=== PATIENT | female | born 1955 | race Caucasian/White ===

== ENCOUNTER → 2018-07-16 | Outpatient (CLI) | payer MEDICARE, BC ==
--- NOTE | 2018-07-16 15:41 | FL ---
EXAMINATION TYPE: FL barium swallow DATE OF EXAM: 07/16/2018 COMPARISON: None HISTORY: Discomfort in the mid chest TECHNIQUE: A single contrast limited esophagram is performed. FINDINGS: Fluoroscopic imaging is performed with real-time observation. Esophagus dilates to normal c aliber has normal contour to the gastroesophageal junction. LAP-BAND is present at the gastroesophage al junction in a normal orientation. Contrast passes through the lap band without hesitancy. No prola pse is evident. Note is made of a few tertiary contractions within the distal esophagus during the ex am. IMPRESSIONS: 1. Normal limited esophagram post lap band. No stenosis or prolapse is evident. 2. Presbyesophagus
[2018-07-16 16:12] VITALS: BP 132/84; PULSE 79; TEMP 98; BMI 31.8
--- NOTE | 2018-07-17 10:42 | P.HPBAR ---
Bariatric H&P - History & Physicial H&P Date: 07/16/18 History & Physicial: Visit/CC: band adjustment/dysphagia Patient initial contact: Initial weight: 95.254 kg Initial weight in pounds: 210.00 Height: 5 ft 1 in Initial BMI: 39.6 Last weight: Current weight: 76.34 kg Current weight in pounds: 168.30 Current BMI: 31.8 [place] body weight (based on NIH guidelines): 47.627 kg Excess body weight loss: 39.7% The patient is a 63 year-old F who presents for Bariatric Assessment. The patient presents today for LAP-BAND adjustment. She's had chronic issues with dysphagia. She's not been seen in several years. Past Medical History History of Any Multi-Drug Resistant Organisms: None Reported Past Surgical History: Bariatric Surgery, Cholecystectomy, Orthopedic Surgery Additional Past Surgical History / Comment(s): lap band placed eary 1999's, bilateral carpal tunnel, hysterectomy with unilateral oopherectomy (pt does not remember which ovary was removed), pt states she had sx on her ureter (they performed this through her vagina) but she can not remember the name of the procedure Past Anesthesia/Blood Transfusion Reactions: No Reported Reaction Additional Past Anesthesia/Blood Transfusion Reaction / Comm: NO blood transfusion to date Past Psychological History: Anxiety, Depression Additional Psychological History / Comment(s): Takes Effexor 225mg daily Smoking Status: Never smoker Past Alcohol Use History: Rare Past Drug Use History: Marijuana Additional Drug Use History / Comment(s): SMokes marijuana occasionally Surgical - Exam Vital Signs Temp Pulse BP 98.0 F 79 132/84 07/16/18 15:30 07/16/18 15:30 07/16/18 15:30 - General well developed, well nourished, no distress - Eyes PERRL - ENT normal pinna - Neck no masses - Respiratory normal expansion - Cardiovascular Rhythm: regular - Abdomen Abdomen: soft, non tender Bariatric Assessment & Plan Plan: The patient's lap band was adjusted. She had 5 mL remove her band. Her band was emptied. She was able to water without difficulty. Patient had an esophagram performed there is no evidence of prolapse of the band. Once her band was emptied there is no significant obstruction. She'll follow-up in 4 weeks. Bariatric Checklist Checklist: Plan: Checklist: EGD: 1. Hiatal hernia: 2. H. Pylori: HgbA1c: Vitamin D: Smoking: Never smoker Primary care physician referral: Dr. Basurto ([place], [place]) Psychiatry clearance: Cardiology clearance: Sleep study: Diet journal: VTE risk score: VTE risk level: Rehab needs at discharge:
== END ==
LOC: BARWHC3 13:33
PROVIDERS: ATTEND Surgery
DX: Z48.815 Encounter for surgical aftercare following surgery on the digestive system (principal); K22.8 Other specified diseases of esophagus; Z98.84 Bariatric surgery status
CPT/HCPCS: 74220; G0463; 99203

== ENCOUNTER → 2018-10-01 | Outpatient (CLI) | payer MEDICARE, BC ==
[2018-10-01 16:53] VITALS: BP 126/73; PULSE 80; RESP 16; TEMP 98.3; BMI 33.0
--- NOTE | 2018-10-02 09:41 | P.HPBAR ---
Bariatric H&P - History & Physicial H&P Date: 10/01/18 History & Physicial: Visit/CC: Band Adj Patient initial contact: Initial weight: 95.254 kg Initial weight in pounds: 210.00 Height: 5 ft 1 in Initial BMI: 39.6 Last weight: Current weight: 79.379 kg Current weight in pounds: 175.00 Current BMI: 33.0 [place] body weight (based on NIH guidelines): 47.627 kg Excess body weight loss: 33.3% The patient is a 63 year-old F who presents for Bariatric Assessment. Patient is requesting an adjustment of her LAP-BAND. She currently feels hungry. She is gaining weight over the last several weeks. Past Medical History History of Any Multi-Drug Resistant Organisms: None Reported Past Surgical History: Bariatric Surgery, Cholecystectomy, Orthopedic Surgery Additional Past Surgical History / Comment(s): lap band placed eary , bilateral carpal tunnel, hysterectomy with unilateral oopherectomy (pt does not remember which ovary was removed), pt states she had sx on her ureter (they perf ormed this through her vagina) but she can not remember the name of the procedure Past Anesthesia/Blood Transfusion Reactions: No Reported Reaction Additional Past Anesthesia/Blood Transfusion Reaction / Comm: NO blood transfusion to date Past Psychological History: Anxiety, Depression Additional Psychological History / Comment(s): Takes Effexor 225mg daily Smoking Status: Never smoker Past Alcohol Use History: Rare Past Drug Use History: Marijuana Additional Drug Use History / Comment(s): SMokes marijuana occasionally Surgical - Exam Vital Signs Temp Pulse Resp BP 98.3 F 80 16 126/73 10/01/18 16:50 10/01/18 16:50 10/01/18 16:50 10/01/18 16:50 - General well developed, well nourished, no distress - Eyes PERRL - Abdomen Abdomen: soft, non tender Bariatric Assessment & Plan Plan: The patient's lap band was adjusted. She had 4 mL added. She'll follow-up in one month.. Bariatric Checklist Checklist: Plan: Checklist: EGD: 1. Hiatal hernia: 2. H. Pylori: HgbA1c: Vitamin D: Smoking: Never smoker Primary care physician referral: Dr. Basurto ([place], [place]) Psychiatry clearance: Cardiology clearance: Sleep study: Diet journal: VTE risk score: VTE risk level: Rehab needs at discharge:
== END ==
LOC: BARWHC3 15:10
PROVIDERS: ATTEND Surgery
DX: Z48.815 Encounter for surgical aftercare following surgery on the digestive system (principal); Z98.84 Bariatric surgery status; Z90.49 Acquired absence of other specified parts of digestive tract
CPT/HCPCS: 99212

== ENCOUNTER → 2019-11-04 | Outpatient (CLI) | payer MEDICARE, BC ==
[2019-11-04 13:24] VITALS: BP 139/82; PULSE 67; RESP 16; TEMP 97.9; BMI 34.5
--- NOTE | 2019-11-04 13:51 | P.HPBAR ---
Bariatric H&P - History & Physicial H&P Date: 11/04/19 History & Physicial: Visit/CC: Requesting band fill Patient initial contact: Initial weight: 95.254 kg Initial weight in pounds: 210.00 Height: 5 ft 1 in Initial BMI: 39.6 Last weight: Current weight: 82.917 kg Current weight in pounds: 182.80 Current BMI: 34.5 [place] body weight (based on NIH guidelines): 47.627 kg Excess body weight loss: 25.9% The patient is a 64 year-old F who presents for Bariatric Assessment. Patient presents today for LAP-BAND adjustment. She's requesting a fill of her band. She currently feels hungry. Past Medical History History of Any Multi-Drug Resistant Organisms: None Reported Past Surgical History: Bariatric Surgery, Cholecystectomy, Orthopedic Surgery Additional Past Surgical History / Comment(s): lap band placed eary 1999's, bilateral carpal tunnel, hysterectomy with unilateral oopherectomy (pt does not remember which ovary was removed), pt states she had sx on her ureter (they performed this through her vagina) but she can not remember the name of the procedure Past Anesthesia/Blood Transfusion Reactions: No Reported Reaction Additional Past Anesthesia/Blood Transfusion Reaction / Comm: NO blood transfusion to date Smoking Status: Never smoker Surgical - Exam Vital Signs Temp Pulse Resp BP 97.9 F 67 16 139/82 11/04/19 12:50 11/04/19 12:50 11/04/19 12:50 11/04/19 12:50 - General well developed, well nourished, no distress - Eyes PERRL - ENT normal pinna - Neck no masses - Respiratory normal expansion - Cardiovascular Rhythm: regular - Abdomen Abdomen: soft, non tender Bariatric Assessment & Plan Plan: Patient's lap band was adjusted. She had 0.5 mL added to the band. She currently is 4.5 mL in the band. She'll follow-up in 4 weeks. Bariatric Checklist Checklist: Plan: Checklist: EGD: 1. Hiatal hernia: 2. H. Pylori: HgbA1c: Vitamin D: Smoking: Never smoker Primary care physician referral: Dr. Basurto ([place], [place]) Psychiatry clearance: Cardiology clearance: Sleep study: Diet journal: VTE risk score: VTE risk level: Rehab needs at discharge:
== END | disposition home or self-care (01) ==
LOC: BARWHC3 12:50
PROVIDERS: ATTEND Surgery
DX: Z46.51 Encounter for fitting and adjustment of gastric lap band (principal); Z98.84 Bariatric surgery status; Z90.49 Acquired absence of other specified parts of digestive tract
CPT/HCPCS: 99212

== ENCOUNTER → 2023-10-23 | Outpatient (CLI) | payer MEDICARE, BC ==
[2023-10-23 11:18] VITALS: BP 145/87; PULSE 73; RESP 16; TEMP 98.2; BMI 33.2
--- NOTE | 2023-12-21 12:37 | P.HPBAR ---
Bariatric H&P - History & Physicial H&P Date: 10/23/23 History & Physicial: Visit/CC: F/U Patient initial contact: Initial weight: 95.254 kg Initial weight in pounds: 210.00 Height: 5 ft 1 in Initial BMI: 39.6 Last weight: Current weight: 79.832 kg Current weight in pounds: 176.00 Current BMI: 33.2 [place] body weight (based on NIH guidelines): 47.627 kg Excess body weight loss: 32.3% The patient is a 68 year-old F who presents for Bariatric Assessment. Patient presents today for bariatric follow-up. She is requesting a fill of her band. Past Medical History History of Any Multi-Drug Resistant Organisms: None Reported Past Surgical History: Bariatric Surgery, Cholecystectomy, Orthopedic Surgery Additional Past Surgical History / Comment(s): lap band placed eary 1999's, bilateral carpal tunnel, hysterectomy with unilateral oopherectomy (pt does not remember which ovary was removed), pt states she had sx on her ureter (they performed this through her vagina) but she can not remember the name of the procedure Past Anesthesia/Blood Transfusion Reactions: No Reported Reaction Additional Past Anesthesia/Blood Transfusion Reaction / Comm: NO blood transfusion to date Past Psychological History: Anxiety, Depression Additional Psychological History / Comment(s): Takes Effexor 225mg daily Smoking Status: Unknown if ever smoked Past Alcohol Use History: Rare Past Drug Use History: Marijuana Additional Drug Use History / Comment(s): SMokes marijuana occasionally Surgical - Exam Vital Signs Temp Pulse Resp BP 98.2 F 73 16 145/87 10/23/23 10:32 10/23/23 10:32 10/23/23 10:32 10/23/23 10:32 Signs are stable. Abdomen is soft. Bariatric Assessment & Plan Plan: Patient has a malfunctioning Lap-Band port. She will need to have her Lap-Band port replaced. Bariatric Checklist Checklist: Plan: Checklist: EGD: 1. Hiatal hernia: 2. H. Pylori: HgbA1c: Vitamin D: Smoking: Never smoker Primary care physician referral: Dr. Basurto ([place], [place]) Psychiatry clearance: Cardiology clearance: Sleep study: Diet journal: VTE risk score: VTE risk level: Rehab needs at discharge:
== END ==
LOC: BARWHC3 09:52
PROVIDERS: ATTEND Surgery
DX: K95.09 Other complications of gastric band procedure (principal); Z98.84 Bariatric surgery status
CPT/HCPCS: 99202

== ENCOUNTER 2023-12-18 09:02 | Day surgery (SDC) | payer MEDICARE, BC ==
[~2023-12-18 09:02] MED LIST: HYDROmorphone 0.5 MG/0.5 ML SYRINGE IVP PRN; LIDOCAINE 1% (10MG/ML) FOR IV START INTRADERMA PRN; droPERidol 5 MG/2 ML VIAL IVP ONE
[2023-12-18 09:27] VITALS: RESP 16
[2023-12-18] MEDS: IV FLUID CONTINUATION 1,000 ML IV ONE ×2 (09:39→11:06)
[2023-12-18] MEDS: LACTATED RINGERS 1,000 ML IV SCH (09:39)
[2023-12-18] MEDS: ACETAMINOPHEN TAB 500 MG TAB PO STA (09:45)
[2023-12-18] MEDS: DEXAMETHASONE SOD PHOSPHATE 4 MG/ML 1 ML VIAL IV ONE (09:46)
[2023-12-18] MEDS: HEPARIN SODIUM,PORCINE 5,000 UNIT/ML 1 ML VIAL SQ STA (09:46)
[2023-12-18] MEDS: ONDANSETRON 4 MG/2 ML VIAL IVP ONE (09:46)
--- NOTE | 2023-12-18 10:41 | P.GSHP ---
History of Present Illness H&P Date: 12/18/23 Chief Complaint: Lap-Band port malfunction Is a 68-year-old female who presents today for Lap-Band port placement. Patient is leaking Lap-Band port. She presents today for laparoscopic removal and replacement. Past Medical History Past Medical History: Hyperlipidemia Additional Past Medical History / Comment(s): no meds for cholesterol, lap band port not working. History of Any Multi-Drug Resistant Organisms: None Reported Past Surgical History: Bariatric Surgery, Cholecystectomy, Hysterectomy, Orthopedic Surgery Additional Past Surgical History / Comment(s): lap band placed eary 2000's, bilateral carpal tunnel, hysterectomy with unilateral oopherectomy (pt does not remember which ovary was removed), pt states she had sx on her ureter (they performed this through her vagina) but she can not remember the name of the procedure Past Anesthesia/Blood Transfusion Reactions: No Reported Reaction Additional Past Anesthesia/Blood Transfusion Reaction / Comment(s): NO blood transfusion to date Smoking Status: Never smoker - Past Family History Father Family Medical History: Diabetes Mellitus Medications and Allergies Home Medications Medication Instructions Recorded Confirmed Type Venlafaxine HCl [Effexor XR] 225 mg PO DAILY 07/16/18 12/18/23 History ARIPiprazole [Abilify] 5 mg PO DAILY 11/04/19 12/18/23 History Allergies Allergy/AdvReac Type Severity Reaction Status Date / Time No Known Allergies Allergy Verified 12/18/23 09:23 Surgical - Exam Vital Signs Temp Pulse Resp BP Pulse Ox 98.1 F 86 16 143/75 97 12/18/23 09:20 12/18/23 09:20 12/18/23 09:20 12/18/23 09:20 12/18/23 09:20 - General well developed, well nourished, moderate distress - Eyes PERRL - ENT normal pinna, normal nares - Neck no masses - Respiratory normal expansion - Cardiovascular Rhythm: regular - Abdomen Abdomen: soft, non tender Assessment and Plan Assessment: Lap-Band port malfunction. Will perform laparoscopic removal and replacement.
[2023-12-18] MEDS ORDERED: PROPOFOL 10 MG/ML 20 ML VIAL IV ONE (11:16)
[2023-12-18] MEDS ORDERED: NEOSTIGMINE 1 MG/ML 10 ML VIAL ONE (11:16)
[2023-12-18] MEDS ORDERED: GLYCOPYRROLATE 0.2 MG/ML 2 ML VIAL ONE (11:16)
[2023-12-18] MEDS ORDERED: fentaNYL (PF) 50 MCG/ML 2 ML AMP ONE (11:16)
[2023-12-18] MEDS ORDERED: MIDAZOLAM 2 MG/2 ML VIAL ONE (11:16)
[2023-12-18] MEDS ORDERED: SUCCINYLCHOLINE CHLORIDE 200 MG/10 ML VIAL IV ONE (11:16)
[2023-12-18] MEDS ORDERED: KETOROLAC 15 MG/ML 1 ML VIAL ONE (11:16)
[2023-12-18] MEDS ORDERED: LIDOCAINE 1% INJ 10MG/ML (20 ML MDV) ONE (11:16)
[2023-12-18] MEDS ORDERED: ROCURONIUM 10 MG/ML (5 ML VIAL) IV ONE (11:16)
[2023-12-18] MEDS: LIDOCAINE 1%-EPI 1:100,000 20 ML VIAL SQ ONE (11:38)
--- NOTE | 2023-12-18 12:20 | P.OP ---
Date of Procedure: 12/18/23 Preoperative Diagnosis: Lap-Band port malfunction Postoperative Diagnosis: Lap-Band port malfunction Procedure(s) Performed: Laparoscopic removal and placement Lap-Band port Anesthesia: JHOANA Surgeon: Joao Strauss Estimated Blood Loss (ml): 10 Pathology: none sent Condition: stable Disposition: PACU Description of Procedure: The patient was placed on the operative table in supine position. She received general endotracheal anesthesia. Her abdomen was prepped and draped in usual sterile fashion. The skin is anesthetized at the incision sites with 1% local Xylocaine. The skin incised at the port site. Using blunt sharp dissection with cautery the Lap-Band port was dissected free. Tube was then cut and the port was removed. Next using a 5 mm optical trocar under vision the peritoneal cavity entered at the port site. The abs insufflated. After adequate deflation the laparoscope was placed back into the peritoneal cavity. And then a 10 mm trocar was placed in the right upper quadrant. The Tube was then grasped and brought out through the trocar site. The trocars were withdrawn. The new Lap- Band port was then cut to the PEG tube. Lap-Band port was secured to the fascia using 0 Nurolon suture. The skin was closed interrupted 3-0 Monocryl suture. Dermabond was applied. The Lap-Band port had been filled with 2 cc prior to skin closure. Patient tolerated procedure well. She was sent to recovery room in stable condition.
[2023-12-18 12:25] VITALS: TEMP 98.3
[2023-12-18 14:00] VITALS: BP 115/74; PULSE 75
== END 2023-12-18 14:09 | disposition home or self-care (01) ==
LOC: OR 09:02
PROVIDERS: ATTEND Surgery
DX: K95.09 Other complications of gastric band procedure (principal); E78.5 Hyperlipidemia, unspecified; E07.9 Disorder of thyroid, unspecified; F41.9 Anxiety disorder, unspecified; F32.A Depression, unspecified; Z90.49 Acquired absence of other specified parts of digestive tract; Z90.710 Acquired absence of both cervix and uterus; Z90.721 Acquired absence of ovaries, unilateral; Z79.899 Other long term (current) drug therapy; Y83.8 Other surgical procedures as the cause of abnormal reaction of the patient, or of later complication, without mention of misadventure at the time of the procedure
CPT/HCPCS: 43773; C1751; J2250; J0330; J1644; J1100; J2710; J0690; J2405; J2001; J3010; J1885; J2704; J1596

== ENCOUNTER → 2024-03-11 | Outpatient (CLI) | payer MEDICARE, BC ==
[2024-03-11 10:17] VITALS: BP 128/81; PULSE 67; RESP 16; BMI 34.0
--- NOTE | 2024-03-11 11:55 | P.HPBAR ---
Bariatric H&P - History & Physicial H&P Date: 03/11/24 History & Physicial: Visit/CC: f/u lap band Patient initial contact: Initial weight: 95.254 kg Initial weight in pounds: 210.00 Height: 5 ft 1 in Initial BMI: 39.6 Last weight: Current weight: 81.647 kg Current weight in pounds: 180.00 Current BMI: 34.0 [place] body weight (based on NIH guidelines): 47.627 kg Excess body weight loss: 28.5% The patient is a 68 year-old F who presents for Bariatric Assessment. Patient is requesting a fill. She currently hungry. Past Medical History Past Medical History: Hyperlipidemia Additional Past Medical History / Comment(s): no meds for cholesterol History of Any Multi-Drug Resistant Organisms: None Reported Past Surgical History: Bariatric Surgery, Cholecystectomy, Hysterectomy, Orthopedic Surgery Additional Past Surgical History / Comment(s): lap band placed eary , lapband replacement done 12/18/23, bilateral carpal tunnel, hysterectomy with unilateral oopherectomy (pt does not remember which ovary was removed), pt states she had sx on her ureter (they performed this through her vagina) but she can not remember the name of the procedure. Past Anesthesia/Blood Transfusion Reactions: No Reported Reaction Additional Past Anesthesia/Blood Transfusion Reaction / Comm: NO blood t ransfusion to date Smoking Status: Never smoker - Past Family History Father Family Medical History: Diabetes Mellitus Surgical - Exam Vital Signs Pulse Resp BP 67 16 128/81 03/11/24 10:13 03/11/24 10:13 03/11/24 10:13 - General well developed, no distress - Abdomen Abdomen: soft, non tender Bariatric Assessment & Plan Plan: Patient lab results. She had 1 cc added to the band. Bariatric Checklist Checklist: Plan: Checklist: EGD: 1. Hiatal hernia: 2. H. Pylori: HgbA1c: Vitamin D: Smoking: Never smoker Primary care physician referral: Dr. Gramajo Psychiatry clearance: Cardiology clearance: Sleep study: Diet journal: VTE risk score: VTE risk level: Rehab needs at discharge:
== END | disposition home or self-care (01) ==
LOC: BARWHC3 09:51
PROVIDERS: ATTEND Surgery
DX: E66.01 Morbid (severe) obesity due to excess calories (principal)
CPT/HCPCS: 43999

== ENCOUNTER → 2024-04-08 | Outpatient (CLI) | payer MEDICARE, BC ==
[2024-04-08 10:25] VITALS: BP 128/84; PULSE 61; RESP 16; TEMP 98.3; BMI 34.4
--- NOTE | 2024-04-08 14:01 | P.HPBAR ---
Bariatric H&P - History & Physicial H&P Date: 04/08/24 History & Physicial: Visit/CC: f/u lap band Patient initial contact: Initial weight: 95.254 kg Initial weight in pounds: 210.00 Height: 5 ft 1 in Initial BMI: 39.6 Last weight: Current weight: 82.554 kg Current weight in pounds: 182.00 Current BMI: 34.4 [place] body weight (based on NIH guidelines): 47.627 kg Excess body weight loss: 26.6% The patient is a 68 year-old F who presents for Bariatric Assessment. Presents today for bariatric follow-up. She is requesting a fill of her band. She currently feels hungry. Past Medical History Past Medical History: Hyperlipidemia Additional Past Medical History / Comment(s): no meds for cholesterol History of Any Multi-Drug Resistant Organisms: None Reported Past Surgical History: Bariatric Surgery, Cholecystectomy, Hysterectomy, Orthopedic Surgery Additional Past Surgical History / Comment(s): lap band placed eary , lapband replacement done 12/18/23, bilateral carpal tunnel, hysterectomy with unilateral oopherectomy (pt does not remember which ovary was removed), pt states she had sx on her ureter (they performed this through her vagina) but she can not remember the name of the procedure. Past Anesthesia/Blood Transfusion Reactions: No Reported Reaction Additional Past Anesthesia/Blood Transfusion Reaction / Comm: NO blood transfusion to date Past Psychological History: Anxiety, Depression Additional Psychological History / Comment(s): Takes Effexor 225mg daily Smoking Status: Never smoker Past Alcohol Use History: Rare Past Drug Use History: Marijuana Additional Drug Use History / Comment(s): Smokes marijuana occasionally - Past Family History Father Family Medical History: Diabetes Mellitus Surgical - Exam Vital Signs Temp Pulse Resp BP 98.3 F 61 16 128/84 04/08/24 10:13 04/08/24 10:13 04/08/24 10:13 04/08/24 10:13 - General well developed, well nourished, no distress - Eyes PERRL - ENT normal pinna - Neck no masses - Respiratory normal expansion - Cardiovascular Rhythm: regular - Abdomen Abdomen: soft, non tender Bariatric Assessment & Plan Plan: Patient Lap-Band adjusted. She had 1.5 cc Ativan. She will follow-up in 4 weeks. Bariatric Checklist Checklist: Plan: Checklist: EGD: 1. Hiatal hernia: 2. H. Pylori: HgbA1c: Vitamin D: Smoking: Never smoker Primary care physician referral: Dr. Gramajo Psychiatry clearance: Cardiology clearance: Sleep study: Diet journal: VTE risk score: VTE risk level: Rehab needs at discharge:
== END ==
LOC: BARWHC3 09:57
PROVIDERS: ATTEND Surgery
DX: Z46.51 Encounter for fitting and adjustment of gastric lap band (principal); E66.01 Morbid (severe) obesity due to excess calories; Z98.84 Bariatric surgery status; Z68.34 Body mass index [BMI] 34.0-34.9, adult
CPT/HCPCS: 43999

== ENCOUNTER → 2024-08-12 | Outpatient (CLI) | payer MEDICARE, BC ==
[2024-08-12 10:42] VITALS: BP 137/81; PULSE 67; RESP 16; TEMP 97.9; BMI 34.7
--- NOTE | 2024-10-03 16:06 | P.HPBAR ---
Bariatric H&P - History & Physicial H&P Date: 08/12/24 History & Physicial: Visit/CC: lapband f/u Patient initial contact: Initial weight: 95.254 kg Initial weight in pounds: 210.00 Height: 5 ft 1 in Initial BMI: 39.6 Last weight: Current weight: 83.461 kg Current weight in pounds: 184.00 Current BMI: 34.7 [place] body weight (based on NIH guidelines): 47.72 kg Excess body weight loss: 24.8% The patient is a 69 year-old F who presents for Bariatric Assessment. Patient is requesting refill of her Lap-Band. She currently is hungry. Past Medical History Past Medical History: Hyperlipidemia Additional Past Medical History / Comment(s): no meds for cholesterol History of Any Multi-Drug Resistant Organisms: None Reported Past Surgical History: Bariatric Surgery, Cholecystectomy, Hysterectomy, Orthopedic Surgery Additional Past Surgical History / Comment(s): lap band placed eary , lapband replacement done 12/18/23, bilateral carpal tunnel, hysterectomy with unilateral oopherectomy (pt does not remember which ovary was removed), pt states she had sx on her ureter (they performed this through her vagina) but she can not remember the name of the procedure. Past Anesthesia/Blood Transfusion Reactions: No Reported Reaction Additional Past Anesthesia/Blood Transfusion Reaction / Comm: NO blood transfusion to date Past Psychological History: Anxiety, Depression Additional Psychological History / Comment(s): Takes Effexor 225mg daily Smoking Status: Never smoker Past Alcohol Use History: Rare Past Drug Use History: Marijuana Additional Drug Use History / Comment(s): Smokes marijuana occasionally - Past Family History Father Family Medical History: Diabetes Mellitus Surgical - Exam Vital Signs Temp Pulse Resp BP 97.9 F 67 16 137/81 08/12/24 10:33 08/12/24 10:33 08/12/24 10:33 08/12/24 10:33 - General well developed, well nourished, no distress - Eyes PERRL - ENT normal pinna - Neck no masses - Respiratory normal expansion - Cardiovascular Rhythm: regular - Abdomen Abdomen: soft, non tender Bariatric Assessment & Plan Plan: The patient Lap-Band was adjusted. She had 0.5 cc at the band. She will follow-up in 4 weeks. Bariatric Checklist Checklist: Plan: Checklist: EGD: 1. Hiatal hernia: 2. H. Pylori: HgbA1c: Vitamin D: Smoking: Never smoker Primary care physician referral: Dr. Gramajo Psychiatry clearance: Cardiology clearance: Sleep study: Diet journal: VTE risk score: VTE risk level: Rehab needs at discharge:
== END ==
LOC: BARWHC3 10:14
PROVIDERS: ATTEND Surgery
DX: E66.01 Morbid (severe) obesity due to excess calories (principal); Z53.9 Procedure and treatment not carried out, unspecified reason
CPT/HCPCS: 43999